=== PATIENT | female | born 1960 | race Caucasian/White ===

== ENCOUNTER 2019-03-16 14:28 | Emergency (ER) | payer OTHER ==
[2019-03-16] MEDS: KETOROLAC 60 MG INJ IM (15:02)
== END 2019-03-16 15:12 | disposition home or self-care (01) ==
LOC: FTE 14:28
DX: M62.838 Other muscle spasm (principal); Z79.82 Long term (current) use of aspirin
CPT/HCPCS: 96372; 99284-25